=== PATIENT | male | born 1990 | race African-American/Black ===

== ENCOUNTER 2017-09-22 06:17 | Emergency (ER) | payer SELFPAY ==
[~2017-09-22] VITALS: Ht 198.1 cm; Wt 136.0 kg
[~2017-09-22 06:17] MED LIST: ALBU6.7H INH; DOXY100T PO; PRED20 PO
[2017-09-22 06:20] VITALS: BP 127/69; PULSE 70; RESP 16; TEMP 98; O2SAT 99
[2017-09-22] MEDS ORDERED: CLEO300C2 PO (06:38)
[2017-09-22] MEDS ORDERED: DICL75TA PO (06:38)
--- NOTE | 2017-09-22 06:43 | PD ---
HPI Chief Complaint: Oral / Dental Pain or Problem Time Seen by Provider: 06:34 Travel History International Travel<30 days: No Contact w/Intl Traveler<30days: No Traveled to known affect area: No History of Present Illness HPI 27-year-old black male presents emergency department with complaints of dental pain. He states the pain is gotten worse over the last 2 weeks although it has been bothering him actually for 2 months. He denies any fever chills. No facial swelling. No difficulty swallowing. Worse with chewing. No alleviating factors. PFSH Past Medical History Medical History: Denies Significant Hx Diminished Hearing: No Tetanus Vaccination: > 5 Years Influenza Vaccination: No Past Surgical History Surgical History: No Previous Surgery Social History Alcohol Use: No Tobacco Use: No Substance Use: No Allergies-Medications (Allergen,Severity, Reaction): Coded Allergies: morphine (Unverified Allergy, Severe, Swelling, 09/22/17) penicillin G (Unverified Allergy, Severe, Hives, 09/22/17) Reported Meds & Prescriptions Reported Meds & Active Scripts Active Diclofenac Sodium DR (Diclofenac Sodium) 75 Mg Tabdr 75 Mg PO BID Cleocin (Clindamycin HCl) 300 Mg Cap 300 Mg PO Q6H 10 Days Review of Systems Except as stated in HPI: all other systems reviewed are Neg General / Constitutional: No: Fever Eyes: No: Visual changes HENT: Positive: Dental Difficulties, Earache, No: Sore Throat, Congestion, Neck Pain, Gingival Bleeding, Ear Discharge Cardiovascular: No: Chest Pain or Discomfort Respiratory: No: Shortness of Breath Gastrointestinal: No: Abdominal Pain Genitourinary: No: Dysuria Musculoskeletal: No: Pain Skin: No Rash Neurologic: No: Weakness Psychiatric: No: Depression Endocrine: No: Polydipsia Hematologic/Lymphatic: No: Easy Bruising Physical Exam Narrative GENERAL: Well-developed, well-nourished in no acute distress. Nontoxic appearing. HEAD: Normocephalic, atraumatic. EYES: Pupils equal round and reactive. Extraocular motions intact. No scleral icterus. No injection or drainage. ENT: TMs clear without erythema. The external auditory canals clear. Nose: clear . Posterior pharynx is pink and moist. No tonsillar edema or exudate. Uvula midline. Airway patent. Patient has a large dental carry and tooth #31. NECK: Trachea midline.Supple, nontender, moves head freely. No central bony tenderness or spasm. CARDIOVASCULAR: Regular rate and rhythm without murmurs, gallops, or rubs. RESPIRATORY: Clear to auscultation. Breath sounds equal bilaterally. No wheezes , rales, or rhonchi. GASTROINTESTINAL: Abdomen soft, non-tender, nondistended. No hepato-splenomegaly , or palpable masses. No guarding. EXTREMITIES: No clubbing, cyanosis, or edema. No joint tenderness, effusion, or edema noted. BACK: Nontender without deformity or crepitance. No flank tenderness. Data Data Last Documented VS Vital Signs Date Time Temp Pulse Resp B/P (MAP) Pulse Ox O2 Delivery O2 Flow Rate FiO2 09/22/17 06:20 98.0 70 16 127/69 (88) 99 Orders Orders Clindamycin (Cleocin) (09/22/17 06:45) Naproxen (Naprosyn) (09/22/17 06:45) MDM Medical Decision Making Medical Screen Exam Complete: Yes Emergency Medical Condition: Yes Medical Record Reviewed: Yes Differential Diagnosis MDM: Moderate Differential diagnoses: Dental abscess, dental caries, osteitis, cellulitis Narrative Course Patient is given Naprosyn 500 mg and clindamycin 300 mg p.o. This is dentalgia, dental caries Diagnosis Primary Impression: Dentalgia Additional Impression: Dental caries Patient Instructions: General Instructions Additional Instructions: Rest. Saltwater gargles. [place] oil on cotton balls. Diclofenac and clindamycin 1 follow-up with a dentist as soon as possible. And return to the ER if any problems. Med/Other Pt SpecificInfo: Prescription(s) given Scripts Diclofenac Sodium DR (Diclofenac Sodium DR) 75 Mg Tabdr 75 MG PO BID, #20 TAB 0 Refills Prov: Ace Odonnell MD 09/22/17 Clindamycin (Cleocin) 300 Mg Cap 300 MG PO Q6H for Infection for 10 Days, #40 CAP 0 Refills Prov: Ace Odonnell MD 09/22/17 Disposition: 01 DISCHARGE HOME Condition: Stable Rupesh Marinelli Sep 22, 2017 06:42
[2017-09-22] MEDS ORDERED: CLINDAMYCIN 150 MG CAP PO ONE (06:45)
[2017-09-22] MEDS ORDERED: NAPROXEN 500 MG TAB PO ONE (06:45)
== END 2017-09-22 07:30 | disposition home or self-care (01) ==
LOC: NEPD 06:17
DX: K08.89 Other specified disorders of teeth and supporting structures (principal); K02.9 Dental caries, unspecified
CPT/HCPCS: 99283

== ENCOUNTER 2017-11-12 18:20 | Emergency (ER) | payer BC ==
[~2017-11-12 18:20] MED LIST changes: -ALBU6.7H INH; +CLEO300C2 PO; +DICL75TA PO; -DOXY100T PO; -PRED20 PO
[2017-11-12 18:31] VITALS: BP 151/91; PULSE 73; RESP 18; TEMP 98.6; O2SAT 99
[2017-11-12] MEDS ORDERED: DOXY100C PO (19:04)
--- NOTE | 2017-11-12 19:08 | RADRPT ---
EXAM DATE/TIME: 11/12/2017 18:52 [facility] COMPARISON: No previous studies available for comparison. INDICATIONS : Cough MEDICAL HISTORY : None. SURGICAL HISTORY : None. ENCOUNTER: Initial ACUITY: 1 day PAIN SCORE: 0/10 LOCATION: chest FINDINGS: PA and lateral views of the chest demonstrate the lungs to be symmetrically aerated without evidence of mass, infiltrate or effusion. The cardiomediastinal contours are unremarkable. 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 No acute bony abnormality demonstrated. CONCLUSION: No evidence of acute cardiopulmonary disease. Moi Reynolds MD on November 12, 2017 at 19:05 Board Certified Radiologist. This report was verified electronically.
--- NOTE | 2017-11-12 19:10 | PD ---
HPI Chief Complaint: Cold / Flu Symptoms Time Seen by Provider: 18:55 Travel History International Travel<30 days: No Contact w/Intl Traveler<30days: No Traveled to known affect area: No History of Present Illness HPI 27-year-old male presents to the emergency room for evaluation of nasal congestion, cough, sore throat, headache, nausea, vomiting, right ear pain/ pressure, laryngitis, and fever for the past 2 weeks. Patient states symptoms started off as laryngitis and had progressively worsened. He went to [facility] a week ago and was prescribed Tessalon Perles and azithromycin. States he took the medication until gone but neither of them helped his symptoms at all. States he was diagnosed with bronchitis but has had bronchitis in the past and it does not feel like this. Maximum temperature at home was 102.7. He smokes about 1-3 cigarettes per day. No chronic medical conditions or daily medications. PFSH Past Medical History Diminished Hearing: No Social History Alcohol Use: No Tobacco Use: No Substance Use: No Allergies-Medications (Allergen,Severity, Reaction): Coded Allergies: morphine (Unverified Allergy, Severe, Swelling, 11/12/17) penicillin G (Unverified Allergy, Severe, Hives, 11/12/17) Reported Meds & Prescriptions Reported Meds & Active Scripts Active Doxycycline Hyclate 100 Mg Cap 100 Mg PO BID Diclofenac Sodium DR (Diclofenac Sodium) 75 Mg Tabdr 75 Mg PO BID Cleocin (Clindamycin HCl) 300 Mg Cap 300 Mg PO Q6H 10 Days Review of Systems Except as stated in HPI: all other systems reviewed are Neg Physical Exam Narrative GENERAL: Well-nourished, well-developed male in no acute distress. Afebrile. Ambulatory. SKIN: Focused skin assessment warm/dry. HEAD: Normocephalic. Tenderness to palpation over the ethmoid and maxillary sinuses. EYES: No scleral icterus. No injection or drainage. NECK: Supple, trachea midline. No JVD or lymphadenopathy. ENT: Mucosa pink and moist. Moderate erythema of the pharynx without significant edema or exudates. No uvular edema. No uvular, palatal, or tonsillar deviation.Airway patent. Nasal turbinates appear normal without nasal blood, purulent drainage or septal hematoma. EARS: Bilateral pinnae and external canals appear within normal limits. Bilateral tympanic membranes without erythema, dullness or perforation. CARDIOVASCULAR: Regular rate and rhythm without murmurs, gallops, or rubs. RESPIRATORY: Breath sounds equal bilaterally. No accessory muscle use. No crackles, rales, wheezes, or rhonchi. Data Data Last Documented VS Vital Signs Date Time Temp Pulse Resp B/P (MAP) Pulse Ox O2 Delivery O2 Flow Rate FiO2 11/12/17 18:31 98.6 73 18 151/91 (111) 99 Orders Orders Chest, Pa & Lat (11/12/17 ) Ed Discharge Order (11/12/17 19:10) MDM Medical Decision Making Medical Screen Exam Complete: Yes Emergency Medical Condition: Yes Medical Record Reviewed: Yes Differential Diagnosis Pharyngitis, upper respiratory infection, pneumonia, bronchitis, sinusitis Narrative Course 27-year-old male presents to the emergency room for evaluation for evaluation of cold and cough symptoms for the past 2 weeks. Patient already went through a [facility] and Tessalon Perles without relief in symptoms. Physical exam is reassuring. Vital signs stable. Patient has moderate congestion and erythema the pharynx. Lung sounds clear and equal bilaterally. He has pain in his sinuses with leaning forward and pain upon palpation of the maxillary and ethmoid sinuses. Chest x-ray is negative. I suspect he has bacterial sinusitis. He will be treated with doxycycline. Told to follow-up with a primary care physician or return for worsening symptoms. He understands and agrees to plan. Diagnosis Primary Impression: Maxillary sinusitis, acute Qualified Codes: J01.00 - Acute maxillary sinusitis, unspecified Referrals: Primary Care Physician Additional Instructions: Rest and drink plenty of fluids. Doxycycline as directed, until gone. [id number] cough and cold medications as directed, as needed for symptoms. Follow-up with a primary care physician. Return to the emergency room for worsening symptoms. Med/Other Pt SpecificInfo: Prescription(s) given Scripts Doxycycline Hyclate (Doxycycline Hyclate) 100 Mg Cap 100 MG PO BID for Infection, #20 CAP 0 Refills Prov: Akira Langford MD 11/12/17 Disposition: 01 DISCHARGE HOME Condition: Stable Celia Rose Nov 12, 2017 19:10
== END 2017-11-12 19:56 | disposition home or self-care (01) ==
LOC: NEPK 18:20
DX: J01.00 Acute maxillary sinusitis, unspecified (principal)
CPT/HCPCS: 71046; 99283